=== PATIENT | female | born 1980 | race African-American/Black ===

== ENCOUNTER 2020-02-11 11:58 | Emergency (ER) | payer MEDICAID ==
[~2020-02-11] VITALS: Ht 160 cm; Wt 95.0 kg
[2020-02-11 12:00] VITALS: BP 127/94
[2020-02-11] MEDS ORDERED: KETOROLAC 60 MG/2 ML VIAL IM ONE (12:35)
[2020-02-11 14:50] LABS: APPEARANCE,URINE HAZY (CLEAR); BILIRUBIN,URINE NEGATIVE (NEGATIVE); BLOOD, URINE 2+ (NEGATIVE); COLOR,URINE YELLOW (YELLOW); LEUKOCYTE ESTERASE ,URINE NEGATIVE (NEGATIVE); NITRITE, URINE NEGATIVE (NEGATIVE); UGLUCOSE NEGATIVE (NEGATIVE)
[2020-02-11 15:04] LABS: RBC,URINE 11-20 (MOD) /HPF (0-5); WBC,URINE 0-5 /HPF (0-5)
[2020-02-11 15:16] VITALS: BP 122/76
== END 2020-02-11 15:17 | disposition home or self-care (01) ==
LOC: MED 11:58
DX: R10.9 Unspecified abdominal pain (principal); R11.0 Nausea; F17.200 Nicotine dependence, unspecified, uncomplicated; Z90.49 Acquired absence of other specified parts of digestive tract
CPT/HCPCS: 81001; 81025; 96372; 99283; J1885

== ENCOUNTER 2020-02-25 00:25 | Emergency (ER) | payer MEDICAID ==
[~2020-02-25] VITALS: Ht 177.8 cm; Wt 99.8 kg
[2020-02-25 00:45] VITALS: BP 135/71
--- NOTE | 2020-02-25 00:47 | NUR ---
To ED bed 11 Addendum: 02/25/20 at 0051 by [facility] bed 12
[2020-02-25 00:48] VITALS: BP 125/72
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
[2020-02-25] MEDS: HYDROcodone/APAP 5/325 MG 1 TAB TAB PO ONE (01:34)
[2020-02-25] MEDS: KETOROLAC 30 MG/ML VIAL IM ONE (01:34)
[2020-02-25] MEDS: ONDANSETRON 4 MG ODT PO ONE (01:35)
--- NOTE | 2020-02-25 02:49 | NUR ---
Patient discharged with v/s stable. Written and verbal after care instructions given and explained. Patient alert, oriented and verbalized understanding of instructions. Ambulatory with steady gait. All questions addressed prior to discharge. ID band removed. Patient advised to follow up with PMD. Rx of norco, ibuprofen and colace given. Patient educated on indication of medication including possible reaction and side effects. Opportunity to ask questions provided and answered.
== END 2020-02-25 02:50 | disposition home or self-care (01) ==
LOC: MED 00:25
DX: S20.219A Contusion of unspecified front wall of thorax, initial encounter (principal); M79.604 Pain in right leg; V49.9XXA Car occupant (driver) (passenger) injured in unspecified traffic accident, initial encounter; Y93.89 Activity, other specified; Y92.89 Other specified places as the place of occurrence of the external cause; Y99.8 Other external cause status
CPT/HCPCS: 73590; 96372; 99283; J1885; Q0092; Q0162

== ENCOUNTER 2021-09-27 15:49 | Emergency (ER) | payer MEDICAID ==
[~2021-09-27] VITALS: Ht 157.5 cm; Wt 96.6 kg
[2021-09-27 16:18] VITALS: BP 130/72
[2021-09-27] MEDS ORDERED: KETOROLAC 30 MG/ML VIAL IM ONE (18:35)
[2021-09-27] MEDS ORDERED: LIDOCAINE MPF 1% 10 MG/ML VIAL INJ ONE (18:35)
--- NOTE | 2021-09-27 19:36 | NUR ---
PT AMBULATORY TO BATHROOM W STEADY GAIT.
--- NOTE | 2021-09-27 19:41 | NUR ---
41 Y/O FEMALE PRESENTS TO ED W C/O ABSCESS NEAR RECTUM 5/10 PRESSURE WORSENING W MOVEMENT AND SHARP W MOVEMENT, RADIATING TO L BUTTOX CONSTANT X2 DAYS. PT DENIES FEVERS/CHILLS/DISCHARGE, N/V/D. PT LAYING IN BED IN PRONE POSITION BED LOCKED IN LOWEST POSITION. BREATHING EVEN AND UNLABORED. WILL CONTINUE TO MONITOR. PMH:DENIES ALLERGIES: DENIES
--- NOTE | 2021-09-27 20:20 | NUR ---
Female Spinal Surgeon accompanied female patient for Rectal I&D procedure.
[2021-09-27] MEDS ORDERED: IBUP-2213 PO (20:23)
[2021-09-27] MEDS ORDERED: SULF-59 PO (20:23)
--- NOTE | 2021-09-27 20:54 | NUR ---
PT REPORTS PAIN IMPROVED ALOT, ABLE TO MOVE AND SIT.
[2021-09-27 20:55] VITALS: BP 128/82
--- NOTE | 2021-09-27 20:55 | NUR ---
Patient discharged with v/s stable. Written and verbal after care instructions given and explained. Patient alert, oriented and verbalized understanding of instructions. Ambulatory with steady gait. All questions addressed prior to discharge. ID band removed. Patient advised to follow up with PMD. Rx of BACTRIM, IBUPROFEN given. Patient educated on indication of medication including possible reaction and side effects. Opportunity to ask questions provided and answered.
== END 2021-09-27 20:55 | disposition home or self-care (01) ==
LOC: MED 15:49
DX: K61.1 Rectal abscess (principal); K64.4 Residual hemorrhoidal skin tags; Z79.1 Long term (current) use of non-steroidal anti-inflammatories (NSAID); Z79.2 Long term (current) use of antibiotics
CPT/HCPCS: 46040; 81025; 96372; 99284; J1885; J2001

== ENCOUNTER 2021-09-30 16:27 | Emergency (ER) | payer MEDICAID ==
[~2021-09-30] VITALS: Ht 157.5 cm; Wt 99.0 kg
[~2021-09-30 16:27] MED LIST: IBUP-2213 PO; SULF-59 PO
[2021-09-30 16:47] VITALS: BP 127/70
--- NOTE | 2021-09-30 18:35 | NUR ---
Female Rug Setter [place] accompanied female patient for ABSCESS EXAM BY RECTUM
--- NOTE | 2021-09-30 18:40 | NUR ---
PT SEEN AND D/C BY SAGRARIO DANIELSON, NO NURSING INTERVENTIONS PROVIDED
--- NOTE | 2021-09-30 18:41 | NUR ---
Patient discharged with v/s stable. Written and verbal after care instructions ABOUT SKIN ABSCESS given and explained. Patient verbalized understanding. Ambulatory with steady gait. All questions addressed prior to discharge. Advised to follow up with PMD.
== END 2021-09-30 18:41 | disposition home or self-care (01) ==
LOC: MED 16:27
DX: K61.1 Rectal abscess (principal); R03.0 Elevated blood-pressure reading, without diagnosis of hypertension
CPT/HCPCS: 99281